=== PATIENT | female | born 1950 | race Caucasian/White ===

== ENCOUNTER 2023-02-23 11:45 | Inpatient (IN) | payer OTHER, MEDICAID ==
[~2023-02-23] VITALS: Ht 157.5 cm; Wt 57.2 kg
--- NOTE | 2023-02-23 11:45 | NUR ---
BIBA BLS TO ER BED 11
[2023-02-23 11:47] VITALS: BP 116/64
--- NOTE | 2023-02-23 12:30 | NUR ---
Pt taken to CT via ryennifer.
[2023-02-23 13:19] LABS: PROTHROMBIN TIME 10.9 secs (10.8-13.4)
[2023-02-23 13:55] LABS: BASOPHILS # (AUTO) 0.1 K/uL (0.00-0.22); BASOPHILS % (AUTO) 1.2 % (0.0-2.0); EOSINOPHILS # (AUTO) 0.1 K/uL (0-0.4); EOSINOPHILS % (AUTO) 2.5 % (0.0-4.0); HEMATOCRIT 40.3 % (36-48); HEMOGLOBIN 13.4 g/dL (12.0-16.0); LYMPHOCYTES # (AUTO) 1.8 K/uL (2.5-16.5); LYMPHOCYTES % (AUTO) 36.2 % (20.5-51.1); MEAN CORPUSCULAR HEMOGLOBIN 30 pg (27-31); MEAN CORPUSCULAR HGB CONC 33 g/dL (33-37); MEAN CORPUSCULAR VOLUME 88.8 fL (80-94); MONOCYTES # (AUTO) 0.5 K/uL (0.8-1.0); NEUTROPHILS # (AUTO) 2.4 K/uL (1.8-7.7); NEUTROPHILS % (AUTO) 50.1 % (42.2-75.2); PLATELET COUNT (AUTO) 133 K/uL (140-450); RED BLOOD CELL COUNT(AUTO) 4.53 MIL/uL (4.20-5.40); RED CELL DISTRIBUTION WIDTH 13.3 % (11.6-13.7); WHITE BLOOD COUNT (AUTO) 4.8 K/uL (4.8-10.8)
[2023-02-23 14:38] LABS: ALBUMIN 3.9 g/dL (3.4-5.0); ANION GAP 15.9 (8-16); ASPARTATE AMINOTRANSFERASE 29 U/L (15-37); CARBON DIOXIDE 26.2 mmol/L (21-32); CHLORIDE 106 mmol/L (98-107); CREATININE 0.8 mg/dL (0.6-1.3); GLUCOSE 68 mg/dL (74-106); POTASSIUM 3.1 mmol/L (3.5-5.1); SODIUM SERUM 145 mmol/L (136-145); TOTAL BILIRUBIN 0.3 mg/dL (0.0-1.0); UREA NITROGEN, BLOOD 20 mg/dL (7-18)
[2023-02-23] MEDS ORDERED: HALOPERIDOL IM 5 MG/ML VIAL IM ONE (14:40)
[2023-02-23] MEDS ORDERED: LIDOCAINE 1% 500 MG/ 50 ML VIAL INJ ONE (15:00)
[2023-02-23] MEDS ORDERED: LIDOCAINE MPF 1% 5 ML ONE (15:01)
[2023-02-23] MEDS ORDERED: LORazepam 2 MG/ML VIAL IM ONE (15:10)
[2023-02-23] MEDS ORDERED: ZOLPIDEM 10 MG TAB PO PRN (15:25)
[2023-02-23] MEDS ORDERED: DOCUSATE SODIUM 100 MG GELCAP PO PRN (15:25)
[2023-02-23] MEDS ORDERED: LORazepam 2 MG/ML VIAL IVP PRN (15:25)
[2023-02-23] MEDS ORDERED: ACETAMINOPHEN 325 MG TAB PO PRN (15:25)
[2023-02-23] MEDS ORDERED: POTASSIUM CHLORIDE 10 MEQ TABER PO PRN (15:25)
[2023-02-23] MEDS ORDERED: ONDANSETRON 4 MG/2 ML VIAL IVP PRN (15:25)
[2023-02-23] MEDS ORDERED: MAG SULF 2000 MG/WATER PREMIX 50 ML IV PRN (15:25)
[2023-02-23] MEDS ORDERED: MORPHINE SULFATE 2 MG/ML SYR IVP PRN (15:25)
[2023-02-23] MEDS ORDERED: NACL 0.9% 1,000 ML IV ONE (15:30)
[2023-02-23] MEDS ORDERED: CHOL5000 PO (18:16)
[2023-02-23] MEDS ORDERED: MEMA5TAB PO (18:16)
[2023-02-23] MEDS ORDERED: QUET25TA PO (18:16)
[2023-02-23] MEDS ORDERED: ASPI-1822 PO (18:16)
--- NOTE | 2023-02-23 19:50 | NUR ---
Report given to FRANKY Bagley. VSS. Pt transported with all belongings.
[2023-02-23 20:01] VITALS: BP 101/60
--- NOTE | 2023-02-23 20:01 | NUR ---
RECEIVED REPORT FROM ER NURSE ERIC FOR CONTINUITY OF CARE. PATIENT IS A&O X1. PATIENT IS ON 2L NC, BREATHING IS NORMAL WITH SYMMETRICAL RISE AND FALL OF CHEST. PATIENT'S IV IS A 22G L HAND, RUNNING NS 100. PATIENT IS SLEEPING, LYING SUPINE POSITION. BED IS IN LOWEST POSITION, WHEELS LOCKED CALL LIGHT IN PLACE. WILL CONTINUE TO OBSERVE PATIENT.
[2023-02-24] VITALS: BP 102/71
[2023-02-24] MEDS ORDERED: POTASSIUM CHLORIDE 20% 40 MEQ/15 ML UDC PO PRN (03:05)
[2023-02-24 04:00] VITALS: BP 128/77
--- NOTE | 2023-02-24 04:00 | NUR ---
PHOTO WAS TAKEN OF WOUND AND PLACED IN CHART.
--- NOTE | 2023-02-24 04:00 | NUR ---
PATIENT HAS BEEN VERY CONFUSED THROUGHOUT THE NIGHT. PATIENT CONSTANTLY SITS UP IN BED AND TRIES TO GET OUT OF BED (BED ALARM IS ON). HOWEVER, PATIENT IS COOPERATIVE WHEN YOU TELL HER THAT SHE NEEDS TO LAY BACK DOWN. PATIENT STATES OH OKAY, YOU WANT ME TO LAY DOWN. PATIENT PULLED OUT HER IV, AND A NEW ONE WAS PLACED BY FRANKY JARA. NEW IV SITE IS A 22G R WRIST; RUNNING NS 100. PATIENT HAS A WOUND ON HER RIGHT EYEBROW, LACERATION WAS SUTURED IN ER. WILL CONTINUE TO OBSERVE PATIENT.
[2023-02-24 05:55] LABS: EOSINOPHILS # (AUTO) 0.1 K/uL (0-0.4); EOSINOPHILS % (AUTO) 2.5 % (0.0-4.0); HEMATOCRIT 41.8 % (36-48); LYMPHOCYTES % (AUTO) 23.7 % (20.5-51.1); MEAN CORPUSCULAR HEMOGLOBIN 30 pg (27-31); MEAN CORPUSCULAR HGB CONC 33 g/dL (33-37); MEAN CORPUSCULAR VOLUME 88.6 fL (80-94); MONOCYTES # (AUTO) 0.4 K/uL (0.8-1.0); NEUTROPHILS # (AUTO) 2.7 K/uL (1.8-7.7); NEUTROPHILS % (AUTO) 62.8 % (42.2-75.2); PLATELET COUNT (AUTO) 112 K/uL (140-450); RED BLOOD CELL COUNT(AUTO) 4.72 MIL/uL (4.20-5.40); RED CELL DISTRIBUTION WIDTH 13.6 % (11.6-13.7); WHITE BLOOD COUNT (AUTO) 4.4 K/uL (4.8-10.8)
[2023-02-24 06:42] LABS: ANION GAP 14.7 (8-16); CHLORIDE 109 mmol/L (98-107); CREATININE 0.7 mg/dL (0.6-1.3); GLUCOSE 83 mg/dL (74-106); POTASSIUM 3.7 mmol/L (3.5-5.1); SODIUM SERUM 145 mmol/L (136-145); UREA NITROGEN, BLOOD 12 mg/dL (7-18)
--- NOTE | 2023-02-24 07:30 | NUR ---
RECEIVED REPORT FROM MODEL AND DYE PERSON NURSE FOR CONTINUITY OF CARE. PT IN BED SLEEPING. VISIBLE CHEST RISE/FALL. RESPIRATIONS EVEN AND UNLABORED ON 2L NC. NO DISTRESS NOTED. IV 22G ON R WRIST INFUSING NS @100. CALL LIGHT WITHIN REACH, ALL SAFETY PRECAUTIONS IN PLACE.
--- NOTE | 2023-02-24 07:45 | NUR ---
ENDORSED TO DAY SHIFT NURSE RICHIE FOR CONTINUITY OF CARE. PATIENT IS STABLE.
[2023-02-24 08:00] VITALS: BP 135/71
--- NOTE | 2023-02-24 08:45 | NUR ---
PER EMAR NS FLUIDS DC AT 0129. IV FLUIDS STOPPED AND DISCONNECTED PT. PT EATING BREAKFAST, TOLERATING WELL.
--- NOTE | 2023-02-24 09:09 | NUR ---
PATIENT HAS BEEN SCREENED AND CATEGORIZED LOW NUTRITION RISK. PATIENT WILL BE SEEN WITHIN 7 DAYS OF ADMISSION. 03/02/[address]VIEW[address] MATTHEW KIMBALL RD
--- NOTE | 2023-02-24 10:35 | NUR ---
WOUND CARE NOTE: PT. IS AWAKE BUT CONFUSE. SKIN ASSESSMENT DONE WITH SUTURES TO RIGHT EYEBROW DRY, NO S/S OF DEHISCENCE. PAYAL-WOUND SKIN FRESH BRUISES WITH PAIN 1/10. SLIGHTLY SWELLING. POC DISCUSSED WITH PT. NEED REINFORCEMENT. RECOMMENDATION: -KEEP SUTURES AREA DRY AND CLEAN -FOLLOW UP WITH PRIMARY PHYSICIAN 7-10 DAYS FOR SUTURE REMOVAL
--- NOTE | 2023-02-24 11:00 | NUR ---
PT REMOVING TELE LEADS. NURSE WALKED IN ROOM PATIENT TAKING OFF CLOTHES AND MUMBLING. WALKED PT BACK TO BED AND PLACED NEW TELE LEADS. REORIENTED PT TO SURROUNDINGS. PT LAYING DOWN IN BED.
[2023-02-24 12:00] VITALS: BP 128/72
--- NOTE | 2023-02-24 13:29 | NUR ---
PT REMOVING LEADS. LEADS REPLACED. TELE MONITORING ONGOING.
[2023-02-24 16:00] VITALS: BP 119/69
--- NOTE | 2023-02-24 16:20 | NUR ---
PT CONTINUALLY GETTING UP FROM BED, PT CONFUSED RIPPED OUT IV. NEW IV PLACED ON R A/C 20G.
--- NOTE | 2023-02-24 19:33 | NUR ---
ENDORSED PT TO FORMS BUILDER NURSE FOR CONTINUITY OF CARE. PT STABLE.
[2023-02-24 20:00] VITALS: BP 122/56
[2023-02-25] VITALS: BP 126/68
[2023-02-25 04:00] VITALS: BP 134/53
[2023-02-25 06:33] LABS: BASOPHILS # (AUTO) 0.1 K/uL (0.00-0.22); BASOPHILS % (AUTO) 0.8 % (0.0-2.0); EOSINOPHILS # (AUTO) 0.1 K/uL (0-0.4); HEMATOCRIT 39.8 % (36-48); HEMOGLOBIN 13.4 g/dL (12.0-16.0); LYMPHOCYTES # (AUTO) 1.3 K/uL (2.5-16.5); LYMPHOCYTES % (AUTO) 21.1 % (20.5-51.1); MEAN CORPUSCULAR HEMOGLOBIN 30 pg (27-31); MEAN CORPUSCULAR HGB CONC 34 g/dL (33-37); MEAN CORPUSCULAR VOLUME 88.2 fL (80-94); MONOCYTES # (AUTO) 0.8 K/uL (0.8-1.0); MONOCYTES % (AUTO) 12.7 % (1.7-9.3); NEUTROPHILS # (AUTO) 3.9 K/uL (1.8-7.7); NEUTROPHILS % (AUTO) 64.4 % (42.2-75.2); PLATELET COUNT (AUTO) 120 K/uL (140-450); RED BLOOD CELL COUNT(AUTO) 4.51 MIL/uL (4.20-5.40); RED CELL DISTRIBUTION WIDTH 13.6 % (11.6-13.7); WHITE BLOOD COUNT (AUTO) 6.1 K/uL (4.8-10.8)
[2023-02-25 06:44] LABS: ANION GAP 11.2 (8-16); CARBON DIOXIDE 27.7 mmol/L (21-32); CHLORIDE 108 mmol/L (98-107); CREATININE 0.8 mg/dL (0.6-1.3); GLUCOSE 93 mg/dL (74-106); POTASSIUM 3.9 mmol/L (3.5-5.1); SODIUM SERUM 143 mmol/L (136-145); UREA NITROGEN, BLOOD 14 mg/dL (7-18)
--- NOTE | 2023-02-25 07:20 | NUR ---
RECEIVED REPORT FOR CONTINUITY OF CARE. PT BROKE FREE OF LEFT WRIST RESTRAINT. PATIENT ORIENTED TO ROOM, REPOSITIONED BACK IN BED. PT IS AOX1 AND FORGETFUL. RESPIRATIONS EVEN AND UNLABORED ON RA. NO DISTRESS NOTED. ALL SAFETY PRECAUTIONS IN PLACE. CALL LIGHT WITHIN REACH.
[2023-02-25 08:00] VITALS: BP 132/72
--- NOTE | 2023-02-25 10:25 | NUR ---
MAKING ROUNDS. PATIENT TALKING TO HERSELF. BROKE FREE OF RESTRAINTS. PATIENT REORIENTED AND ASSISTED BACK IN BED.
[2023-02-25 12:00] VITALS: BP 120/73
--- NOTE | 2023-02-25 13:16 | NUR ---
BED ALARM GOING OFF. PT REORIENTED TO SURROUNDING.
[2023-02-25 16:00] VITALS: BP 123/68
--- NOTE | 2023-02-25 17:00 | NUR ---
MAKING ROUNDS PATIENT IN BED TALKING TO HERSELF. NO DISTRESS NOTED. CARE ONGOING.
--- NOTE | 2023-02-25 19:23 | NUR ---
ENDORSED PT TO FORCER MAKER NURSE FOR CONTINUITY OF CARE. PT IS STABLE.
[2023-02-25 20:00] VITALS: BP_SYST 132; BP_SYST 133; BP_DIAS 72
--- NOTE | 2023-02-25 20:00 | NUR ---
NURSE REPORT REPORT OBTAINED FROM [facility] NURSE QUIROZ AND THIS NURSE ASSUMED CARE OF PATIENT. ALL QUESTIONS ANSWERED. JONO DORAN RN
[2023-02-26] VITALS: BP 133/64
--- NOTE | 2023-02-26 00:02 | NUR ---
NURSE NOTES VSS. AFEB. TELE WITH SR OCC-FREQ PCS- HR 72 BPM. NO C/O PAIN OR DISCOMFORT
[2023-02-26 04:00] VITALS: BP 128/53
[2023-02-26 05:47] LABS: BASOPHILS # (AUTO) 0.1 K/uL (0.00-0.22); BASOPHILS % (AUTO) 0.8 % (0.0-2.0); EOSINOPHILS # (AUTO) 0.1 K/uL (0-0.4); EOSINOPHILS % (AUTO) 1.5 % (0.0-4.0); HEMATOCRIT 43.2 % (36-48); HEMOGLOBIN 14.3 g/dL (12.0-16.0); LYMPHOCYTES % (AUTO) 27.6 % (20.5-51.1); MEAN CORPUSCULAR HEMOGLOBIN 29 pg (27-31); MEAN CORPUSCULAR HGB CONC 33 g/dL (33-37); MEAN CORPUSCULAR VOLUME 88.8 fL (80-94); MONOCYTES # (AUTO) 1.1 K/uL (0.8-1.0); NEUTROPHILS % (AUTO) 54.7 % (42.2-75.2); PLATELET COUNT (AUTO) 127 K/uL (140-450); RED BLOOD CELL COUNT(AUTO) 4.87 MIL/uL (4.20-5.40); RED CELL DISTRIBUTION WIDTH 13.8 % (11.6-13.7); WHITE BLOOD COUNT (AUTO) 7.4 K/uL (4.8-10.8)
[2023-02-26 06:07] LABS: CARBON DIOXIDE 26.8 mmol/L (21-32); CHLORIDE 107 mmol/L (98-107); CREATININE 0.8 mg/dL (0.6-1.3); GLUCOSE 96 mg/dL (74-106); POTASSIUM 3.8 mmol/L (3.5-5.1); SODIUM SERUM 142 mmol/L (136-145); UREA NITROGEN, BLOOD 14 mg/dL (7-18)
[2023-02-26 06:38] LABS: MONOCYTES % (AUTO) 15.4 % (1.7-9.3)
--- NOTE | 2023-02-26 07:07 | NUR ---
NURSE REPORT REPORT GIVEN TO RICHIE TO ASSUME CARE OF PATIENT. ALL QUESTIONS ANSWERED. JONO DORAN RN
--- NOTE | 2023-02-26 07:08 | NUR ---
RECEIVED PT FROM PAINT TRIMMER PIPE BOWLS FOR CONTINUITY OF CARE. PATIENT IS AWAKE SITTING ON EDGE OF BED WITH FEET HANGING OFF FOOT OF BED, SOFT WRIST RESTRAINTS ON. REORIENTED PATIENT TO ENVIRONMENT. PATIENT IS ALERT AND ORIENTED X1. RESPIRATIONS EVEN AND UNLABORED ON RA. SKIN IS COOL TO TOUCH. PLACED BLANKETS ON PATIENT. ALL SAFETY PRECAUTIONS IN PLACE.
[2023-02-26 08:00] VITALS: BP 137/70
[2023-02-26] MEDS: QUEtiapine FUMARATE 25 MG TAB PO SCH (08:52)
[2023-02-26] MEDS: MEMANTINE 10 MG TAB PO SCH (08:55)
--- NOTE | 2023-02-26 09:00 | NUR ---
ADMINISTERED ALL SCHEDULED MEDS. PT TOLERATING WELL. EATING BREAKFAST.
[2023-02-26 12:00] VITALS: BP 115/58
[2023-02-26 16:00] VITALS: BP 123/56
--- NOTE | 2023-02-26 19:23 | NUR ---
ENDORSED PT TO TOOL REPAIRER BENCH NURSE FOR CONTINUITY OF CARE. ALL NEEDS MET THROUGHOUT SHIFT. PT IS STABLE
--- NOTE | 2023-02-26 19:24 | NUR ---
RECEIVED ENDORSEMENT FROM DAY SHIFT NURSE FOR CONTINUITY OF CARE. PT IS ON STABLE CONDITION. PT IS AWAKE, ALERT AND CONFUSE. PT IS ON BED AND COMPLY WITH INSTRUCTION. IV SITE ON RIGHT AC INTACT AND PATENT. RIGHT EYE IS WITH DISCOLORATION AND SLIGHTLY SWOLLEN. NO COMPLAINT OF PAIN OR DISCOMFORT.
[2023-02-26 20:00] VITALS: BP 116/63
--- NOTE | 2023-02-26 20:30 | NUR ---
PT IS ASLEEP, NO FACIAL GRIMACING.
--- NOTE | 2023-02-26 22:00 | NUR ---
PT IS SLEEPING WELL, NO SOB OR DISTRESS.
--- NOTE | 2023-02-27 00:20 | NUR ---
PT IS ASLEEP, NO SOB OR DISTRESS. LACERATION ON RIGHT FOREHEAD IS DRY.
--- NOTE | 2023-02-27 03:10 | NUR ---
PT IS ASLEEP. NO FACIAL GRIMACING.
[2023-02-27 04:00] VITALS: BP 135/63
[2023-02-27 06:11] LABS: ANION GAP 9.6 (8-16); BASOPHILS # (AUTO) 0.1 K/uL (0.00-0.22); CARBON DIOXIDE 29.1 mmol/L (21-32); CHLORIDE 108 mmol/L (98-107); CREATININE 0.8 mg/dL (0.6-1.3); EOSINOPHILS # (AUTO) 0.2 K/uL (0-0.4); EOSINOPHILS % (AUTO) 3.1 % (0.0-4.0); GLUCOSE 93 mg/dL (74-106); LYMPHOCYTES # (AUTO) 1.7 K/uL (2.5-16.5); LYMPHOCYTES % (AUTO) 30.1 % (20.5-51.1); MEAN CORPUSCULAR HEMOGLOBIN 30 pg (27-31); MEAN CORPUSCULAR HGB CONC 33 g/dL (33-37); MEAN CORPUSCULAR VOLUME 88.9 fL (80-94); MONOCYTES # (AUTO) 0.7 K/uL (0.8-1.0); MONOCYTES % (AUTO) 12.3 % (1.7-9.3); NEUTROPHILS # (AUTO) 3.1 K/uL (1.8-7.7); NEUTROPHILS % (AUTO) 53.5 % (42.2-75.2); PLATELET COUNT (AUTO) 125 K/uL (140-450); POTASSIUM 3.7 mmol/L (3.5-5.1); RED BLOOD CELL COUNT(AUTO) 4.73 MIL/uL (4.20-5.40); RED CELL DISTRIBUTION WIDTH 13.8 % (11.6-13.7); SODIUM SERUM 143 mmol/L (136-145); UREA NITROGEN, BLOOD 14 mg/dL (7-18); WHITE BLOOD COUNT (AUTO) 5.8 K/uL (4.8-10.8)
--- NOTE | 2023-02-27 06:54 | NUR ---
PT IS SLEEPING, NO SOB OR DISTRESS. ALL SAFETY MEASURES ARE IN PLACE, WILL ENDORSED TO DAY SHIFT NURSE FOR CONTINUITY OF CARE.
--- NOTE | 2023-02-27 07:08 | NUR ---
receive the patinet from the mine shifter rn in rm 121B aox1 with episode of confusion with admitting diagnosis of mechanical fall . will continue to monitor
--- NOTE | 2023-02-27 07:20 | NUR ---
PT IS ON STABLE CONDITION, NO SOB OR DISTRESS. NO FACIAL GRIMACING. NECESSARY SAFETY MEASURES ARE IN PLACE. ENDORSED TO DAY SHIFT NURSE YOLANDA FOR CONTINUITY OF CARE.
[2023-02-27 08:00] VITALS: BP 114/65
[2023-02-27] MEDS: QUEtiapine FUMARATE 25 MG TAB PO SCH (09:09)
[2023-02-27] MEDS: MEMANTINE 10 MG TAB PO SCH (09:09)
--- NOTE | 2023-02-27 11:30 | NUR ---
discharge the patient to [facility] . patient in stable condition . no complain of pain at this time . no sign and symptoms of respiratory distress sicontnue intravenous line , identification band . brought by EMT by derrell to [facility]
--- NOTE | 2023-02-27 11:30 | NUR ---
RECEIVED ORDER FOR PATIENT TO DISCHARGE BACK TO [facility]ED [facility] LOCATED AT [address] [place] [address]. CALL FOR REPORT# . TRANSPORTATION AUTH#[id number] GIVEN FROM ZI MOREIRA. [facility] TRANSPORTATION SET UP WITH [facility] WITH A 1500 [employer] TECHNICIAN TIME. NURSE YOLANDA AND SON LEON AWARE OF THE ABOVE INFORMATION.
--- NOTE | 2023-02-27 12:29 | NUR ---
PT. CHANGE OF VANESSA SCALE WITH LOW VANESSA SCALE AT MODERATE TO HIGH RISK, CONTINUE TO FOLLOW PRESSURE INJURY PREVENTION INTERVENTIONS. -POSITIONING: TURN AND REPOSITION PATIENT Q 2H OR SOONER USE PILLOWS TO KEEP BONY PROMINENCES FROM DIRECT CONTACT WITH SURFACES USE REPOSITIONING WEDGES TO PROVIDE 30-DEGREE ANGLE FOR SIDE LYING POSITIONS OFFLOADING OR FOAM DRESSING TO ALL TUBING TO PREVENT MEDICAL DEVICES RELATED PRESSURE INJURY -RE-EVALUATING AND MANAGING INCONTINENCE MONITOR SKIN CONDITION DURING POSITION CHANGE DO NOT MASSAGE REDNESS, BONY PROMINENCES FREQUENT PAYAL-CARE AND PROVIDE BARRIER CREAMS PRN IF SOILING MOISTURE CONTROL BY OFFER BED GUPTA/URINAL /ABSORBENT PAD TO WICK AND HOLD MOISTURE KEEP SKIN DRY AND PROTECT FROM FRICTION -MANAGE FRICTION/SHEAR/MOBILITY KEEP HOB AT THE LOWEST LEVEL OF ELEVATION NO MORE THAN 30 DEGREE UNLESS OTHERWISE CONTRAINDICATED USE LIFT SHEET OR TRANSFER DEVICE TO MOVE PATIENT AND PREVENT LATERAL SHEER. PROTECT HEELS, ELBOWS BONY PROMINENCES WITH SKIN BERRIES OR FOAM DRESSING IF EXPOSED TO FRICTION OFFLOAD BILATERAL HEELS BY PLACING PILLOWS UNDER CALVES AT ALL TIMES, UNLESS OTHERWISE CONTRAINDICATED -PRESSURE REDISTRIBUTION SURFACE THERAPY SARAH ISOFLEX MATTRESS -NUTRITION: PLEASE FOLLOW RD RECOMMENDATIONS AND OFFER NUTRITION SUPPLEMENTS IF ORDERED. PLEASE CONTACT WOUND CARE NURSE FOR ANY QUESTION AND CHANGE OF WOUND CONDITION.
[2023-02-27] MEDS ORDERED: DOCU-299 PO (13:52)
== END 2023-02-27 14:05 | DRG 605 ==
LOC: MED 11:45 → MTU 15:25
PROVIDERS: ADMIT Family Medicine; ATTEND Family Medicine
PROC: 0HQ1XZZ Repair Face Skin, External Approach (ICD-10-PCS; principal; 2023-02-24)
DX: S01.81XA Laceration without foreign body of other part of head, initial encounter (principal); S09.90XA Unspecified injury of head, initial encounter; E87.6 Hypokalemia; R00.1 Bradycardia, unspecified; I10 Essential (primary) hypertension; F03.90 Unspecified dementia, unspecified severity, without behavioral disturbance, psychotic disturbance, mood disturbance, and anxiety; D72.819 Decreased white blood cell count, unspecified; D69.6 Thrombocytopenia, unspecified; I67.2 Cerebral atherosclerosis; E16.2 Hypoglycemia, unspecified; Z20.822 Contact with and (suspected) exposure to COVID-19; W18.39XA Other fall on same level, initial encounter; Y93.89 Activity, other specified; Y92.89 Other specified places as the place of occurrence of the external cause; Y99.8 Other external cause status
CPT/HCPCS: 36415; 70450; 72125; 80048; 80053; 83735; 84484; 85025; 85610; 85730; 87081; 90471; 90715; 93005; 96372; 97116; 97163-GP; 97530; 99285; J1630; J2001; J2060

== ENCOUNTER 2023-04-06 10:40 | Inpatient (IN) | payer OTHER, MEDICAID ==
[~2023-04-06] VITALS: Ht 160 cm; Wt 45.4 kg
[~2023-04-06 10:40] MED LIST: ASPI-1822 PO; CHOL5000 PO; DOCU-299 PO; MEMA5TAB PO; QUET25TA PO
--- NOTE | 2023-04-06 10:51 | NUR ---
PATIENT BIBA TO BED 7
[2023-04-06 10:52] VITALS: BP 103/58
--- NOTE | 2023-04-06 11:21 | NUR ---
PT WAS EXAMINED BY DR. CASTANON THEN TAKEN TO CT.
--- NOTE | 2023-04-06 12:06 | NUR ---
LAB AT BEDSIDE.
[2023-04-06 12:28] LABS: APPEARANCE,URINE CLEAR (CLEAR); BILIRUBIN,URINE NEGATIVE (NEGATIVE); BLOOD, URINE NEGATIVE (NEGATIVE); COLOR,URINE YELLOW (YELLOW); LEUKOCYTE ESTERASE ,URINE 1+ (NEGATIVE); NITRITE, URINE NEGATIVE (NEGATIVE); PH,URINE 5.5 (5.0-9.0); UGLUCOSE NEGATIVE (NEGATIVE)
[2023-04-06 12:31] LABS: BASOPHILS # (AUTO) 0.1 K/uL (0.00-0.22); BASOPHILS % (AUTO) 1.1 % (0.0-2.0); EOSINOPHILS # (AUTO) 0.1 K/uL (0-0.4); EOSINOPHILS % (AUTO) 2.3 % (0.0-4.0); HEMATOCRIT 34.8 % (36-48); HEMOGLOBIN 11.8 g/dL (12.0-16.0); LYMPHOCYTES # (AUTO) 1.9 K/uL (2.5-16.5); LYMPHOCYTES % (AUTO) 36.1 % (20.5-51.1); MEAN CORPUSCULAR HEMOGLOBIN 30 pg (27-31); MEAN CORPUSCULAR HGB CONC 34 g/dL (33-37); MONOCYTES # (AUTO) 0.3 K/uL (0.8-1.0); MONOCYTES % (AUTO) 6.6 % (1.7-9.3); NEUTROPHILS # (AUTO) 2.8 K/uL (1.8-7.7); NEUTROPHILS % (AUTO) 53.9 % (42.2-75.2); PLATELET COUNT (AUTO) 142 K/uL (140-450); RED BLOOD CELL COUNT(AUTO) 3.95 MIL/uL (4.20-5.40); RED CELL DISTRIBUTION WIDTH 14.5 % (11.6-13.7); WHITE BLOOD COUNT (AUTO) 5.3 K/uL (4.8-10.8)
[2023-04-06] MEDS ORDERED: OLANZapine 10 MG VIAL IM ONE (12:40)
--- NOTE | 2023-04-06 12:46 | NUR ---
PT HAS ACUTE ONSET OF AGITATION/ CONFUSION, AWARE
--- NOTE | 2023-04-06 12:46 | NUR ---
GETTING MORE AGITATING. DR. CASTANON NOTIFIED. ZYPREXA IM ORDERED AND GIVEN BY JOI WILKINS.
[2023-04-06 12:57] LABS: ASPARTATE AMINOTRANSFERASE 25 U/L (15-37); TOTAL BILIRUBIN 0.3 mg/dL (0.0-1.0)
[2023-04-06 13:11] LABS: ALBUMIN 3.3 g/dL (3.4-5.0); CARBON DIOXIDE 26.6 mmol/L (21-32); CHLORIDE 110 mmol/L (98-107); CREATININE 0.8 mg/dL (0.6-1.3); GLUCOSE 83 mg/dL (74-106); POTASSIUM 3.6 mmol/L (3.5-5.1); SODIUM SERUM 145 mmol/L (136-145); UREA NITROGEN, BLOOD 18 mg/dL (7-18)
[2023-04-06 13:22] LABS: ACETAMINOPHEN < 0.5 ug/ml (10-30); SALICYLATE < 2.8 mg/dL (2.8-20.0)
[2023-04-06 14:09] LABS: RBC,URINE 0-5 /HPF (0-5)
[2023-04-06 14:10] LABS: CALCIUM OXALATE CRYSTALS,UR None Seen /HPF (None Seen); COARSE GRANULAR CASTS,URINE None Seen /LPF (None Seen); HYALINE CASTS, URINE None Seen /LPF (None Seen); OTHER CASTS, URINE None Seen /LPF (None Seen); OTHER CRYSTALS,URINE None Seen /HPF (None Seen); RED BLOOD CELL CASTS,URINE None Seen /LPF (None Seen); TRICHOMONAS,URINE None Seen /HPF (None Seen); TRIPLE PHOSPHATE CRYSTAL,UR None Seen /HPF (None Seen); URINE AMORPHOUS URATE None Seen /HPF (None Seen); WAXY CASTS,URINE None Seen /LPF (None Seen); YEAST,URINE None Seen /HPF (None Seen)
[2023-04-06] MEDS ORDERED: cefTRIAXone 1,000 MG VIAL ONE (14:31)
[2023-04-06] MEDS ORDERED: ACETAMINOPHEN 325 MG TAB PO PRN (15:40)
[2023-04-06] MEDS ORDERED: MORPHINE SULFATE 2 MG/ML SYR IVP PRN (15:40)
[2023-04-06] MEDS ORDERED: DOCUSATE SODIUM 100 MG GELCAP PO PRN (15:40)
[2023-04-06] MEDS ORDERED: MAG SULF 2000 MG/WATER PREMIX 50 ML IV PRN (15:40)
[2023-04-06] MEDS ORDERED: POTASSIUM CHLORIDE 10 MEQ TABER PO PRN (15:40)
[2023-04-06] MEDS ORDERED: ONDANSETRON 4 MG/2 ML VIAL IVP PRN (15:40)
[2023-04-06] MEDS: NACL 0.9% 1,000 ML IV SCH (15:52)
[2023-04-06 18:28] VITALS: BP 138/66
--- NOTE | 2023-04-06 18:28 | NUR ---
PT GOT BED 108B. PT WAS SENT BY [facility]. REPORT WAS ENDORSED BEDSIDE.
--- NOTE | 2023-04-06 18:48 | NUR ---
Admission of a 72 year old female with a primary diagnosis of altered level of consciousness under the care of Doctor Welch.
--- NOTE | 2023-04-06 19:35 | NUR ---
RECEIVED BEDSIDE REPORT FROM MORNING NURSE. PATIENT AWAKE CONFUSED, REORIENTED. NO ACUTE DISTRESS ON ROOM AIR. IV SITE TO LEFT UPPER ARM INTACT AND PATENT. ALL SAFETY PRECAUTIONS ARE IN PLACE. CALL LIGHT WITHIN REACH. NASAL SWAB DONE FOR MRSA SCREENING. WILL CONTINUE TO MONITOR.
[2023-04-06 20:00] VITALS: BP 115/58
[2023-04-06] MEDS: ZOLPIDEM 10 MG TAB PO PRN (21:15)
--- NOTE | 2023-04-06 21:15 | NUR ---
SCHEDULED MEDS GIVEN.
[2023-04-07] MEDS: LORazepam 2 MG/ML VIAL IVP PRN ×3 (01:19→23:09)
[2023-04-07 04:00] VITALS: BP 123/54
[2023-04-07] MEDS: NACL 0.9% 1,000 ML IV SCH ×2 (05:58→20:16)
--- NOTE | 2023-04-07 07:12 | NUR ---
NEEDS ATTENDED AND MET THROUGHOUT THE SHIFT. GAVE BEDSIDE REPORT TO AM NURSE FOR CONTINUITY OF CARE.
[2023-04-07 08:00] VITALS: BP 123/54
[2023-04-07 08:13] LABS: BASOPHILS # (AUTO) 0.1 K/uL (0.00-0.22); EOSINOPHILS # (AUTO) 0.2 K/uL (0-0.4); EOSINOPHILS % (AUTO) 3.1 % (0.0-4.0); HEMATOCRIT 40.3 % (36-48); HEMOGLOBIN 13.4 g/dL (12.0-16.0); LYMPHOCYTES # (AUTO) 1.9 K/uL (2.5-16.5); LYMPHOCYTES % (AUTO) 33.5 % (20.5-51.1); MEAN CORPUSCULAR HEMOGLOBIN 30 pg (27-31); MEAN CORPUSCULAR HGB CONC 33 g/dL (33-37); MEAN CORPUSCULAR VOLUME 89.1 fL (80-94); MONOCYTES # (AUTO) 0.4 K/uL (0.8-1.0); MONOCYTES % (AUTO) 7.6 % (1.7-9.3); NEUTROPHILS # (AUTO) 3.1 K/uL (1.8-7.7); NEUTROPHILS % (AUTO) 54.8 % (42.2-75.2); PLATELET COUNT (AUTO) 139 K/uL (140-450); RED BLOOD CELL COUNT(AUTO) 4.52 MIL/uL (4.20-5.40); RED CELL DISTRIBUTION WIDTH 14.4 % (11.6-13.7); WHITE BLOOD COUNT (AUTO) 5.7 K/uL (4.8-10.8)
[2023-04-07] MEDS ORDERED: DOCUSATE SODIUM 100 MG GELCAP PO PRN (08:40)
--- NOTE | 2023-04-07 09:06 | NUR ---
PATIENT HAS BEEN SCREENED AND CATEGORIZED LOW NUTRITION RISK. PATIENT WILL BE SEEN WITHIN 7 DAYS OF ADMISSION. 04/13/[address] REVIEWED BY MAT[address]W KIMBALL RD
[2023-04-07] MEDS: ASPIRIN 81 MG TAB.CHEW PO SCH (09:18)
[2023-04-07] MEDS: MEMANTINE 10 MG TAB PO SCH (09:18)
[2023-04-07 09:33] LABS: ANION GAP 11.6 (8-16); CARBON DIOXIDE 28.1 mmol/L (21-32); CHLORIDE 111 mmol/L (98-107); CREATININE 0.7 mg/dL (0.6-1.3); GLUCOSE 71 mg/dL (74-106); POTASSIUM 4.7 mmol/L (3.5-5.1); SODIUM SERUM 146 mmol/L (136-145); UREA NITROGEN, BLOOD 16 mg/dL (7-18)
--- NOTE | 2023-04-07 15:46 | NUR ---
DC PLANNING ASSESSMENT COMPLETE PLEASE REFER TO ASSESSMENT FOR ADDITIONAL DETAILS MYLES DARCIE DC PLAN IS FOR PT TO RETURN TO MR ONCE MEDICALLY CLEARED BY PHYSICIAN. Addendum: 04/07/23 at 1548 by Marisol ALVA Amended: Links added.
[2023-04-07 20:00] VITALS: BP 110/58
--- NOTE | 2023-04-07 21:32 | NUR ---
ADMINISTERED SCHEDULED MEDICATION PER MD ORDER.
--- NOTE | 2023-04-07 23:10 | NUR ---
IV INFILTRATED. STARTED A NEW IV TO THE RIGHT HAND WITH GOOD BACK FLOW OF BLOOD. TOLERATED WELL.
[2023-04-08 04:00] VITALS: BP 142/71
[2023-04-08 07:16] LABS: BASOPHILS % (AUTO) 0.7 % (0.0-2.0); EOSINOPHILS # (AUTO) 0.1 K/uL (0-0.4); EOSINOPHILS % (AUTO) 2.7 % (0.0-4.0); HEMATOCRIT 38.2 % (36-48); HEMOGLOBIN 12.8 g/dL (12.0-16.0); LYMPHOCYTES # (AUTO) 1.5 K/uL (2.5-16.5); LYMPHOCYTES % (AUTO) 28.5 % (20.5-51.1); MEAN CORPUSCULAR HEMOGLOBIN 30 pg (27-31); MEAN CORPUSCULAR HGB CONC 34 g/dL (33-37); MEAN CORPUSCULAR VOLUME 88.2 fL (80-94); MONOCYTES # (AUTO) 0.3 K/uL (0.8-1.0); MONOCYTES % (AUTO) 6.1 % (1.7-9.3); NEUTROPHILS # (AUTO) 3.2 K/uL (1.8-7.7); PLATELET COUNT (AUTO) 147 K/uL (140-450); RED BLOOD CELL COUNT(AUTO) 4.33 MIL/uL (4.20-5.40); RED CELL DISTRIBUTION WIDTH 14.5 % (11.6-13.7); WHITE BLOOD COUNT (AUTO) 5.1 K/uL (4.8-10.8)
[2023-04-08 07:37] LABS: ANION GAP 12.7 (8-16); CARBON DIOXIDE 24.7 mmol/L (21-32); CHLORIDE 109 mmol/L (98-107); CREATININE 0.7 mg/dL (0.6-1.3); GLUCOSE 77 mg/dL (74-106); POTASSIUM 3.4 mmol/L (3.5-5.1); SODIUM SERUM 143 mmol/L (136-145); UREA NITROGEN, BLOOD 10 mg/dL (7-18)
[2023-04-08 08:00] VITALS: BP 117/54
[2023-04-08] MEDS: ASPIRIN 81 MG TAB.CHEW PO SCH (09:16)
[2023-04-08] MEDS: MEMANTINE 10 MG TAB PO SCH (09:16)
[2023-04-08] MEDS: LORazepam 2 MG/ML VIAL IVP PRN (10:00)
[2023-04-08] MEDS: NACL 0.9% 1,000 ML IV SCH (10:34)
[2023-04-08 16:00] VITALS: BP 135/75
[2023-04-08 20:00] VITALS: BP 144/77
[2023-04-08] MEDS: ZOLPIDEM 10 MG TAB PO PRN (23:26)
[2023-04-09] MEDS: NACL 0.9% 1,000 ML IV SCH ×2 (00:52→15:10)
[2023-04-09 04:00] VITALS: BP 104/56
[2023-04-09 07:04] LABS: BASOPHILS % (AUTO) 0.8 % (0.0-2.0); EOSINOPHILS # (AUTO) 0.1 K/uL (0-0.4); EOSINOPHILS % (AUTO) 1.5 % (0.0-4.0); HEMATOCRIT 40.7 % (36-48); HEMOGLOBIN 13.6 g/dL (12.0-16.0); LYMPHOCYTES # (AUTO) 1.8 K/uL (2.5-16.5); LYMPHOCYTES % (AUTO) 28.3 % (20.5-51.1); MEAN CORPUSCULAR HEMOGLOBIN 30 pg (27-31); MEAN CORPUSCULAR HGB CONC 33 g/dL (33-37); MONOCYTES # (AUTO) 0.4 K/uL (0.8-1.0); MONOCYTES % (AUTO) 6.6 % (1.7-9.3); NEUTROPHILS # (AUTO) 3.9 K/uL (1.8-7.7); NEUTROPHILS % (AUTO) 62.8 % (42.2-75.2); PLATELET COUNT (AUTO) 159 K/uL (140-450); RED BLOOD CELL COUNT(AUTO) 4.63 MIL/uL (4.20-5.40); RED CELL DISTRIBUTION WIDTH 14.7 % (11.6-13.7); WHITE BLOOD COUNT (AUTO) 6.2 K/uL (4.8-10.8)
--- NOTE | 2023-04-09 07:13 | NUR ---
RECEIVED PATIENT FROM PM NURSE FOR CONTUATION OF CARE. PATIENT SEEN ON BED TRYNG TO GET UP. PATIENT IS CONFUSED AND ON RESTRAINTS. NO IV SITE ESTABLISHED DUE TO PATIENT INTERFERENCE. RESTRAINT CHARTING CHECKED, PLAN OF CARE REVIEWED, PATIENT CARE CONTINUED.
[2023-04-09 07:15] LABS: ANION GAP 12.9 (8-16); CARBON DIOXIDE 26.2 mmol/L (21-32); CHLORIDE 106 mmol/L (98-107); CREATININE 0.8 mg/dL (0.6-1.3); GLUCOSE 77 mg/dL (74-106); POTASSIUM 3.1 mmol/L (3.5-5.1); SODIUM SERUM 142 mmol/L (136-145); UREA NITROGEN, BLOOD 7 mg/dL (7-18)
[2023-04-09 08:00] VITALS: BP 127/67
[2023-04-09] MEDS: ASPIRIN 81 MG TAB.CHEW PO SCH (08:59)
[2023-04-09] MEDS: MEMANTINE 10 MG TAB PO SCH (08:59)
[2023-04-09 16:00] VITALS: BP 111/71
[2023-04-09] MEDS: LORazepam 2 MG/ML VIAL IVP PRN (18:03)
--- NOTE | 2023-04-09 19:20 | NUR ---
ENDORSED PATIENT TO NIGHT NURSE FOR CONTINUATION OF CARE.
--- NOTE | 2023-04-09 19:21 | NUR ---
RECEIVED ENDORSEMENT FROM JERILYN RN. PATIENT WAS STABLE IN BED ASLEEP. NURSING NOTED CHEST RISING AND FALLING WITHOUT INCIDENT. PATIENT IS ON BILATERAL SOFT WRIST RESTRAINT DUE TO REMOVING ANY AND ALL MEDICAL DEVICES AND ATTEMPTING TO GET OUT OF BED A FALL RISK. ALL NEEDS WERE MET AT THIS TIME. KEPT CLEAN AND DRY AT THIS TIME. SIDE RAILS UP X 3 FOR COMFORT AND SAFETY. CALL LIGHT WITHIN REACH BUT NURSING WILL FREQUENT THIS ROOM FOR ANTICIPATED ASSISTANCE. [email or web address]
[2023-04-09 20:00] VITALS: BP 106/61
--- NOTE | 2023-04-09 22:34 | NUR ---
PATIENT WAS WET FROM URINE AND WAS GIVEN ABED BATH THEN CHANGED INTO CLEAN AND DRY CLOTHING DIAPER. NO NOTED OPEN SORES. NOTED MULTIPLE BRUISING TO BILATERAL KNEES YELLOWISH GREEN. PATIENT IS ON HEPARIN TREATMENT. BILATERAL SOFT WRIST RESTRAINTS REMAIN WITH Q15 RELEASE FOR BREAKS, CIRCULATION CHECKS, AND SAFETY. [email or web address]
--- NOTE | 2023-04-10 00:27 | NUR ---
PATIENT NOTED AT THE END OF HER BED ATTEMPTING TO GET OUT. BILATERAL SOFT RESTRAINT ARE INTACT AND BED ALARM IS ON AND WORKING. PATIENT WAS CLEANED AND REPOSITIONED TO REMAIN SAFE AND CLEAN. CALL LIGHT IN REACH. SIDE RAILS UP X 3. ALL NEEDS MET AT THIS TIME. NURSING WILL FREQUENT THE ROOM FOR SAFETY AND ASSISTANCE. [email or web address]
[2023-04-10] MEDS: ZOLPIDEM 10 MG TAB PO PRN (01:01)
--- NOTE | 2023-04-10 01:57 | NUR ---
PATIENT NOTED IN BED ATTEMPTING TO GET OUT AGAIN. AMBIEN GIVEN IS NOT EFFECTIVE AT THIS TIME. COVERING RN WAS NOTIFIED TO PLEASE GIVE ATIVAN. BP NOTED 133/70 HEART RATE 72. BILATERAL SOFT WRIST RESTRAINTS ARE STILL INTACT. FOLLOWING PROTOCOL FOR 15 MIN BREAKS, CIRCULATION CHECK, AND REPOSITIONING. [email or web address]
[2023-04-10 04:00] VITALS: BP 111/62
--- NOTE | 2023-04-10 04:27 | NUR ---
PATIENT IN BED ASLEEP AFTER COVERING RN GAVE ATIVAN. NO NOTED SIDE EFFECTS. NO NOTED S/S OF PAIN/DISCOMFORT. NO NOTED S/S OF RESPIRATORY DISTRESS. CALL LIGHT WITHIN REACH. NURSING WILL FREQUENT THIS ROOM FOR ANTICIPATED NEEDS. [email or web address]
[2023-04-10] MEDS: NACL 0.9% 1,000 ML IV SCH (05:28)
--- NOTE | 2023-04-10 05:30 | NUR ---
PATIENT IS TOO CONFUSED TO HAVE IV FLUIDS. I WILL PAGE THE BUSINESS OBJECTS ARCHITECT TO PLACE PATIENT ON SALINE LOCK BECAUSE SHE CAN DRINK ON COMMAND WITHOUT CHOKING. [email or web address]
[2023-04-10 06:56] LABS: BASOPHILS % (AUTO) 0.7 % (0.0-2.0); EOSINOPHILS # (AUTO) 0.1 K/uL (0-0.4); EOSINOPHILS % (AUTO) 2.1 % (0.0-4.0); HEMATOCRIT 38.7 % (36-48); LYMPHOCYTES % (AUTO) 29.4 % (20.5-51.1); MEAN CORPUSCULAR HEMOGLOBIN 30 pg (27-31); MEAN CORPUSCULAR HGB CONC 34 g/dL (33-37); MEAN CORPUSCULAR VOLUME 88.5 fL (80-94); MONOCYTES # (AUTO) 0.5 K/uL (0.8-1.0); MONOCYTES % (AUTO) 7.8 % (1.7-9.3); NEUTROPHILS # (AUTO) 4.1 K/uL (1.8-7.7); PLATELET COUNT (AUTO) 159 K/uL (140-450); RED BLOOD CELL COUNT(AUTO) 4.37 MIL/uL (4.20-5.40); RED CELL DISTRIBUTION WIDTH 14.7 % (11.6-13.7); WHITE BLOOD COUNT (AUTO) 6.8 K/uL (4.8-10.8)
[2023-04-10 07:02] LABS: ANION GAP 11.8 (8-16); CARBON DIOXIDE 27.4 mmol/L (21-32); CHLORIDE 109 mmol/L (98-107); CREATININE 0.8 mg/dL (0.6-1.3); GLUCOSE 82 mg/dL (74-106); POTASSIUM 4.2 mmol/L (3.5-5.1); SODIUM SERUM 144 mmol/L (136-145); UREA NITROGEN, BLOOD 15 mg/dL (7-18)
--- NOTE | 2023-04-10 07:03 | NUR ---
ENDORSED TO JERILYN RN, PATIENT WAS STABLE DURING SHIFT REPORT. [email or web address]
--- NOTE | 2023-04-10 07:15 | NUR ---
RECEIVED PATIENT FROM PM NURSE FOR CONTINUATION OF CARE. PT SEEN ON BED ASLEEP. NORMAL RISE AND FALL OF CHEST. PATIENT CARE PLAN SEEN. PATIENT CARE CONTINUED.
[2023-04-10 08:00] VITALS: BP 108/64
[2023-04-10] MEDS: ASPIRIN 81 MG TAB.CHEW PO SCH (09:53)
[2023-04-10] MEDS: MEMANTINE 10 MG TAB PO SCH (09:53)
[2023-04-10] MEDS ORDERED: CEPH-588 PO ×2 (10:41→10:42)
[2023-04-10] MEDS ORDERED: cephALEXin 500 MG CAP PO SCH (12:00)
--- NOTE | 2023-04-10 12:09 | NUR ---
CALLED TO GIVE REPORT TO HEDY FROM [facility] REGARDING PT'S DISCHARGE AND TRANSPORTATION. PER HEDY, THE TRANSPORTATION SERVICE IS OUT FOR THE DAY, AND WE WILL ARRANGE TRANSPORTATION ON OUR END. NOTIFIED PRIMARY RN JERILYN. Addendum: 04/10/23 at 1241 by Apurva Hedrick RN NOTIFIED DORIS LEAL RISK ADJUSTMENT SPECIALIST KAITLYNN OUT OF OFFICE ON LUNCH CURRENTLY.
--- NOTE | 2023-04-10 13:57 | NUR ---
RECEIVED WORD FOR ARRANGE TRANSPORTATION. RECEIVED TRANSPORTATION AUTH # [id number] FROM HARISH AT [facility]. CALLED TRANSPORT FOR A [id number] SALES PORTER TIME.
[2023-04-10 14:06] VITALS: BP 108/64
== END 2023-04-10 15:10 | DRG 71 ==
LOC: MED 10:40 → MMU 14:03 → MTU 18:00
PROVIDERS: ADMIT General Practice; ATTEND General Practice
DX: G93.41 Metabolic encephalopathy (principal); N39.0 Urinary tract infection, site not specified; G30.9 Alzheimer's disease, unspecified; F02.80 Dementia in other diseases classified elsewhere, unspecified severity, without behavioral disturbance, psychotic disturbance, mood disturbance, and anxiety; I10 Essential (primary) hypertension; Z20.822 Contact with and (suspected) exposure to COVID-19; Z66 Do not resuscitate
CPT/HCPCS: 36415; 70450; 71045; 80048; 80053; 81001; 82140; 82550; 83036; 83735; 84484; 85025; 87040; 87081; 87086; 93005; 96365; 96374; 99291; G0480; G0482; J0696; J1644; J2060; J3490; J7060

== ENCOUNTER 2023-04-19 22:29 | Emergency (ER) | payer OTHER, MEDICAID ==
[~2023-04-19] VITALS: Ht 157.5 cm; Wt 47.6 kg
[~2023-04-19 22:29] MED LIST changes: +CEPH-588 PO
--- NOTE | 2023-04-19 22:30 | NUR ---
LISA FROM [facility] FOLLOWING ALTERCATION WITH ROOMMATE. PT SUSTAINED LACERATION TO BACK OF HEAD AND BUE. PT IS NON COOPERATIVE AND COMBATIVE.
--- NOTE | 2023-04-19 22:31 | NUR ---
PT LISA BLS. TAKEN TO BED 5
--- NOTE | 2023-04-19 22:40 | NUR ---
Dr. Antonio examining patient.
[2023-04-19 22:45] VITALS: BP 124/72
[2023-04-19] MEDS ORDERED: HALOPERIDOL IM 5 MG/ML VIAL IM ONE (22:50)
[2023-04-19] MEDS ORDERED: diphenhydrAMINE 50 MG/ML VIAL IM ONE (22:50)
--- NOTE | 2023-04-19 23:37 | NUR ---
PT TAKEN TO CT
[2023-04-20] MEDS ORDERED: BACTO TP (02:18)
--- NOTE | 2023-04-20 02:44 | NUR ---
resting comfortably with eyes closed. respirations regular and unlabored
--- NOTE | 2023-04-20 04:00 | NUR ---
Patient appears to be resting comfortably in bed. Vital Signs within normal limits. Respirations even and unlabored.
--- NOTE | 2023-04-20 07:17 | NUR ---
Report recieved from FRANKY Bailon for transfer of care.
--- NOTE | 2023-04-20 07:25 | NUR ---
Report given to Tami at [facility]. Patient's warehouse picker is at 8:00AM.
[2023-04-20 07:54] VITALS: BP 123/59
--- NOTE | 2023-04-20 07:54 | NUR ---
Patient discharged with v/s stable. Written and verbal after care instructions given. Patient alert, oriented and verbalized understanding of instructions. Wheel Chair Assisted with to car. All questions addressed prior to discharge. ID band removed. Patient advised to follow up with PMD. Rx of Muirocin given. Opportunity to ask questions provided and answered.
--- NOTE | 2023-04-20 07:55 | NUR ---
The patient's care was reviewed and supervised by Mila Higuera, RN, RN.
== END 2023-04-20 07:54 | disposition home or self-care (01) ==
LOC: MED 22:29
DX: S00.01XA Abrasion of scalp, initial encounter (principal); F03.90 Unspecified dementia, unspecified severity, without behavioral disturbance, psychotic disturbance, mood disturbance, and anxiety; I10 Essential (primary) hypertension; Z79.899 Other long term (current) drug therapy; Y04.8XXA Assault by other bodily force, initial encounter; Y93.89 Activity, other specified; Y92.89 Other specified places as the place of occurrence of the external cause; Y99.8 Other external cause status
CPT/HCPCS: 70450; 90471; 90715; 96372; 99285; J1200; J1630

== ENCOUNTER 2023-06-28 23:10 | Emergency (ER) | payer OTHER, MEDICAID ==
[~2023-06-28] VITALS: Ht 162.6 cm; Wt 55.3 kg
[~2023-06-28 23:10] MED LIST changes: +BACTO TP
[2023-06-28 23:28] VITALS: BP 128/70; PULSE 58; RESP 14; O2SAT 98
--- NOTE | 2023-06-28 23:29 | NUR ---
PT LISA BLS. TAKEN TO BED 5
--- NOTE | 2023-06-28 23:42 | NUR ---
73 YO F LISA FROM [facility]/ STAFF AT [facility] STATE PT WAS FOUND EATING [facility] BLINDS AND THEY REQUESTED AMBULANCE TRANSPORT TO ER FOR EVALUATION. PT HAS NO S/S PAIN OR DISTRESS. PT AXO1 AND ONLY ABLE TO REPEAT HER NAME. PT CONFUSED AND AGGRESSIVE. PT IN VIEW OF NURSES STATION. SAFETY MEASURES IN PLACE. NDKA PMHX: DEMENTIA, HTN
[2023-06-28 23:47] VITALS: BP 147/52; PULSE 54; RESP 18; TEMP 96.5; O2SAT 100
--- NOTE | 2023-06-28 23:56 | NUR ---
Dr. Smith examining patient.
[2023-06-29] MEDS ORDERED: WATER STERILE 10 ML MC ONE (00:01)
[2023-06-29] MEDS: OLANZapine 10 MG VIAL IM ONE (00:20)
--- NOTE | 2023-06-29 00:45 | NUR ---
Patient discharged with v/s stable. Written and verbal after care instructions given and explained. Patient verbalized understanding. Wheel Chair Assisted with to senior care. All questions addressed prior to discharge. Advised to follow up with PMD.
== END 2023-06-29 00:45 | disposition home or self-care (01) ==
LOC: MED 23:10
DX: T18.9XXA Foreign body of alimentary tract, part unspecified, initial encounter (principal); G30.9 Alzheimer's disease, unspecified; F02.80 Dementia in other diseases classified elsewhere, unspecified severity, without behavioral disturbance, psychotic disturbance, mood disturbance, and anxiety; I10 Essential (primary) hypertension; Z79.899 Other long term (current) drug therapy; X58.XXXA Exposure to other specified factors, initial encounter
CPT/HCPCS: 96372; 99283; J3490

== ENCOUNTER 2023-06-30 15:35 | Emergency (ER) | payer OTHER, MEDICAID ==
[~2023-06-30] VITALS: Ht 152.4 cm; Wt 49.9 kg
[2023-06-30] MEDS ORDERED: OLANZapine 10 MG VIAL IM ONE (15:50)
[2023-06-30 16:12] LABS: BASOPHILS # (AUTO) 0.1 K/uL (0.00-0.22); BASOPHILS % (AUTO) 1.1 % (0.0-2.0); EOSINOPHILS # (AUTO) 0.2 K/uL (0-0.4); EOSINOPHILS % (AUTO) 2.4 % (0.0-4.0); HEMATOCRIT 36.6 % (36-48); HEMOGLOBIN 12.2 g/dL (12.0-16.0); LYMPHOCYTES # (AUTO) 1.7 K/uL (2.5-16.5); LYMPHOCYTES % (AUTO) 26.2 % (20.5-51.1); MEAN CORPUSCULAR HEMOGLOBIN 31 pg (27-31); MEAN CORPUSCULAR HGB CONC 33 g/dL (33-37); MEAN CORPUSCULAR VOLUME 92.1 fL (80-94); MONOCYTES # (AUTO) 0.4 K/uL (0.8-1.0); MONOCYTES % (AUTO) 6.8 % (1.7-9.3); NEUTROPHILS % (AUTO) 63.5 % (42.2-75.2); PLATELET COUNT (AUTO) 164 K/uL (140-450); RED BLOOD CELL COUNT(AUTO) 3.98 MIL/uL (4.20-5.40); RED CELL DISTRIBUTION WIDTH 13.6 % (11.6-13.7); WHITE BLOOD COUNT (AUTO) 6.4 K/uL (4.8-10.8)
[2023-06-30 16:32] VITALS: BP 114/66; PULSE 55; RESP 18; TEMP 97.9; O2SAT 99
[2023-06-30 16:38] LABS: ALANINE AMINOTRANSFERASE 20 U/L (12-78); ALBUMIN 3.5 g/dL (3.4-5.0); ALKALINE PHOSPHATASE 182 U/L (50-136); ANION GAP 10.9 (8-16); ASPARTATE AMINOTRANSFERASE 31 U/L (15-37); CALCIUM 8.7 mg/dL (8.5-10.1); CARBON DIOXIDE 28.8 mmol/L (21-32); CHLORIDE 107 mmol/L (98-107); CREATININE 0.9 mg/dL (0.6-1.3); GLUCOSE 91 mg/dL (74-106); POTASSIUM 3.7 mmol/L (3.5-5.1); SODIUM SERUM 143 mmol/L (136-145); TOTAL BILIRUBIN 0.3 mg/dL (0.0-1.0); TOTAL PROTEIN, SERUM 6.6 g/dL (6.4-8.2); UREA NITROGEN, BLOOD 20 mg/dL (7-18)
[2023-06-30] MEDS ORDERED: WATER STERILE 10 ML MC ONE (16:42)
[2023-06-30 17:20] VITALS: O2SAT 99
== END 2023-06-30 20:23 | disposition home or self-care (01) ==
LOC: MED 15:35
DX: T65.891A Toxic effect of other specified substances, accidental (unintentional), initial encounter (principal); F03.90 Unspecified dementia, unspecified severity, without behavioral disturbance, psychotic disturbance, mood disturbance, and anxiety; I10 Essential (primary) hypertension; Z79.899 Other long term (current) drug therapy; Y92.89 Other specified places as the place of occurrence of the external cause
CPT/HCPCS: 36415; 70360; 71045; 74018; 80053; 85025; 96372; 99284; G0482; J3490

== ENCOUNTER 2023-07-05 17:19 | Inpatient (IN) | payer OTHER, MEDICAID ==
[~2023-07-05] VITALS: Ht 147.3 cm; Wt 43.1 kg
[2023-07-05 17:40] VITALS: BP 114/60; PULSE 60; RESP 14; O2SAT 97
[2023-07-05] MEDS ORDERED: LORazepam 0.5 MG TAB PO ONE (17:55)
[2023-07-05] MEDS ORDERED: OLANZapine 10 MG VIAL IM ONE (18:20)
[2023-07-05] MEDS ORDERED: WATER STERILE 10 ML MC ONE (18:25)
[2023-07-05 18:32] VITALS: O2SAT 98
[2023-07-05] MEDS ORDERED: LORazepam 2 MG/ML VIAL IM ONE (19:25)
[2023-07-05] MEDS ORDERED: LORazepam 2 MG/ML VIAL IVP ONE (19:35)
[2023-07-05 19:40] LABS: BASOPHILS # (AUTO) 0.1 K/uL (0.00-0.22); BASOPHILS % (AUTO) 0.7 % (0.0-2.0); EOSINOPHILS # (AUTO) 0.1 K/uL (0-0.4); EOSINOPHILS % (AUTO) 0.9 % (0.0-4.0); HEMATOCRIT 34.4 % (36-48); HEMOGLOBIN 11.5 g/dL (12.0-16.0); LYMPHOCYTES # (AUTO) 1.4 K/uL (2.5-16.5); LYMPHOCYTES % (AUTO) 19.1 % (20.5-51.1); MEAN CORPUSCULAR HEMOGLOBIN 31 pg (27-31); MEAN CORPUSCULAR HGB CONC 33 g/dL (33-37); MONOCYTES # (AUTO) 0.6 K/uL (0.8-1.0); MONOCYTES % (AUTO) 8.1 % (1.7-9.3); NEUTROPHILS # (AUTO) 5.3 K/uL (1.8-7.7); NEUTROPHILS % (AUTO) 71.2 % (42.2-75.2); PLATELET COUNT (AUTO) 139 K/uL (140-450); RED BLOOD CELL COUNT(AUTO) 3.74 MIL/uL (4.20-5.40); RED CELL DISTRIBUTION WIDTH 13.5 % (11.6-13.7); WHITE BLOOD COUNT (AUTO) 7.4 K/uL (4.8-10.8)
[2023-07-05 20:04] LABS: ANION GAP 13.4 (8-16); CALCIUM 8.8 mg/dL (8.5-10.1); CARBON DIOXIDE 26.6 mmol/L (21-32); CHLORIDE 108 mmol/L (98-107); CREATININE 0.8 mg/dL (0.6-1.3); GLUCOSE 112 mg/dL (74-106); SODIUM SERUM 144 mmol/L (136-145); UREA NITROGEN, BLOOD 22 mg/dL (7-18)
[2023-07-05 20:14] LABS: ALANINE AMINOTRANSFERASE 26 U/L (12-78); ALBUMIN 3.7 g/dL (3.4-5.0); ALKALINE PHOSPHATASE 184 U/L (50-136); ASPARTATE AMINOTRANSFERASE 45 U/L (15-37); TOTAL BILIRUBIN 0.3 mg/dL (0.0-1.0); TOTAL PROTEIN, SERUM 6.9 g/dL (6.4-8.2)
[2023-07-05] MEDS ORDERED: LORazepam 2 MG/ML VIAL ONE (20:58)
[2023-07-05 21:19] LABS: BILIRUBIN,URINE NEGATIVE (NEGATIVE); BLOOD, URINE 3+ (NEGATIVE); COLOR,URINE YELLOW (YELLOW); LEUKOCYTE ESTERASE ,URINE TRACE (NEGATIVE); NITRITE, URINE NEGATIVE (NEGATIVE); PROTEIN,URINE NEGATIVE (NEGATIVE); UGLUCOSE NEGATIVE (NEGATIVE)
[2023-07-05 22:01] LABS: APPEARANCE,URINE HAZY (CLEAR)
[2023-07-05 22:04] LABS: BACTERIA,URINE FEW /HPF (None Seen); RBC,URINE 20-50 /HPF (0-5); SQUAMOUS EPITHELIAL CELL,UR None Seen /LPF (0-3 (FEW)); WBC,URINE 0-5 /HPF (0-5)
[2023-07-05] MEDS ORDERED: SERT25TA PO (22:17)
[2023-07-05] MEDS ORDERED: ACET-2619 PO (22:17)
[2023-07-05] MEDS ORDERED: LORazepam 2 MG/ML VIAL IVP PRN (22:30)
[2023-07-05] MEDS ORDERED: ACETAMINOPHEN 325 MG TAB PO PRN (22:30)
[2023-07-05] MEDS ORDERED: ONDANSETRON 4 MG/2 ML VIAL IVP PRN (22:30)
[2023-07-05] MEDS ORDERED: ALBUTEROL 0.083% 2.5 MG/3 ML NEBU INH PRN (22:30)
[2023-07-05] MEDS ORDERED: MORPHINE SULFATE 2 MG/ML SYR IVP PRN (22:30)
[2023-07-05 23:25] VITALS: PULSE 50; RESP 17; O2SAT 100
[2023-07-05] MEDS ORDERED: cefTRIAXone 1,000 MG VIAL ONE (23:30)
[2023-07-06] VITALS (7 sets, daily range): BP systolic 110–153; BP diastolic 72–81; PULSE 52–86; RESP 16–18; TEMP 96.7–97.8; O2SAT 94–100
[2023-07-06] MEDS: NACL 0.9% 1,000 ML IV SCH ×3 (00:24→18:38)
[2023-07-06 05:10] LABS: BASOPHILS % (AUTO) 0.9 % (0.0-2.0); EOSINOPHILS # (AUTO) 0.2 K/uL (0-0.4); EOSINOPHILS % (AUTO) 2.8 % (0.0-4.0); HEMATOCRIT 33.2 % (36-48); HEMOGLOBIN 11.2 g/dL (12.0-16.0); LYMPHOCYTES # (AUTO) 1.9 K/uL (2.5-16.5); LYMPHOCYTES % (AUTO) 34.3 % (20.5-51.1); MEAN CORPUSCULAR HEMOGLOBIN 31 pg (27-31); MEAN CORPUSCULAR HGB CONC 34 g/dL (33-37); MONOCYTES # (AUTO) 0.5 K/uL (0.8-1.0); MONOCYTES % (AUTO) 9.7 % (1.7-9.3); NEUTROPHILS # (AUTO) 2.9 K/uL (1.8-7.7); NEUTROPHILS % (AUTO) 52.3 % (42.2-75.2); PLATELET COUNT (AUTO) 121 K/uL (140-450); RED BLOOD CELL COUNT(AUTO) 3.61 MIL/uL (4.20-5.40); RED CELL DISTRIBUTION WIDTH 13.6 % (11.6-13.7); WHITE BLOOD COUNT (AUTO) 5.5 K/uL (4.8-10.8)
[2023-07-06 05:14] LABS: ALANINE AMINOTRANSFERASE 23 U/L (12-78); ALBUMIN 3.2 g/dL (3.4-5.0); ALKALINE PHOSPHATASE 154 U/L (50-136); ANION GAP 8.8 (8-16); ASPARTATE AMINOTRANSFERASE 40 U/L (15-37); CALCIUM 8.3 mg/dL (8.5-10.1); CARBON DIOXIDE 28.6 mmol/L (21-32); CHLORIDE 110 mmol/L (98-107); CREATININE 0.8 mg/dL (0.6-1.3); GLUCOSE 77 mg/dL (74-106); MAGNESIUM 2.2 mg/dL (1.8-2.4); PHOSPHORUS 3.2 mg/dL (2.5-4.9); POTASSIUM 3.4 mmol/L (3.5-5.1); SODIUM SERUM 144 mmol/L (136-145); TOTAL BILIRUBIN 0.3 mg/dL (0.0-1.0); TOTAL PROTEIN, SERUM 6.2 g/dL (6.4-8.2); UREA NITROGEN, BLOOD 17 mg/dL (7-18)
[2023-07-06 10:44] LABS: FREE T4 (FREE THYROXINE) 0.73 ng/dL (0.76-1.46); THYROID STIMULATING HORMONE 3.21 uIU/mL (0.34-3.74)
[2023-07-06] MEDS ORDERED: DOCUSATE SODIUM 100 MG GELCAP PO PRN (11:20)
[2023-07-06] MEDS ORDERED: ACETAMINOPHEN 325 MG TAB PO SCH (11:20)
[2023-07-06] MEDS ORDERED: QUEtiapine FUMARATE 25 MG TAB PO SCH (12:00)
[2023-07-06] MEDS ORDERED: HALOPERIDOL IM 5 MG/ML VIAL IM SCH (12:17)
[2023-07-06] MEDS ORDERED: POTASSIUM CHLORIDE 10 MEQ TABER PO SCH (18:00)
[2023-07-07] MEDS: NACL 0.9% 1,000 ML IV SCH ×2 (04:30→10:55)
[2023-07-07 07:06] VITALS: O2SAT 100
[2023-07-07 08:00] VITALS: BP 119/56; PULSE 85; RESP 16; RESP 18; TEMP 97.6; O2SAT 100
[2023-07-07] MEDS: SERTRALINE 50 MG TAB PO SCH (09:22)
[2023-07-07] MEDS: QUEtiapine FUMARATE 25 MG TAB PO SCH (09:22)
[2023-07-07 16:00] VITALS: BP 129/81; PULSE 60; RESP 20; TEMP 98; O2SAT 100
[2023-07-07 19:34] VITALS: O2SAT 100
[2023-07-07 20:00] VITALS: BP 112/63; PULSE 65; RESP 16; TEMP 97.2; O2SAT 96
[2023-07-07] MEDS ORDERED: ZOLPIDEM 5 MG TAB PO PRN (20:15)
[2023-07-07] MEDS ORDERED: cefTRIAXone 1,000 MG in LIDOCAINE MPF 1% 2.1 ML IM ONE (23:05)
[2023-07-07] MEDS ORDERED: LIDOCAINE MPF 1% 5 ML ONE (23:42)
[2023-07-07] MEDS ORDERED: cefTRIAXone 1,000 MG VIAL ONE (23:43)
[2023-07-07] MEDS: HYDROcodone/APAP 5/325 MG 1 TAB TAB PO PRN (23:46)
[2023-07-08] MEDS: NACL 0.9% 1,000 ML IV SCH ×3 (00:30→20:30)
[2023-07-08 06:47] VITALS: O2SAT 96
[2023-07-08 08:00] VITALS: BP 120/60; PULSE 56; RESP 18; RESP 20; TEMP 98; O2SAT 100
[2023-07-08] MEDS: QUEtiapine FUMARATE 25 MG TAB PO SCH ×2 (08:54→22:03)
[2023-07-08] MEDS: SERTRALINE 50 MG TAB PO SCH (08:54)
[2023-07-08] MEDS: HYDROcodone/APAP 5/325 MG 1 TAB TAB PO PRN (08:55)
[2023-07-08 11:11] LABS: BASOPHILS # (AUTO) 0.1 K/uL (0.00-0.22); BASOPHILS % (AUTO) 0.8 % (0.0-2.0); EOSINOPHILS # (AUTO) 0.1 K/uL (0-0.4); EOSINOPHILS % (AUTO) 1.8 % (0.0-4.0); HEMATOCRIT 39.1 % (36-48); LYMPHOCYTES # (AUTO) 1.3 K/uL (2.5-16.5); LYMPHOCYTES % (AUTO) 20.3 % (20.5-51.1); MEAN CORPUSCULAR HEMOGLOBIN 31 pg (27-31); MEAN CORPUSCULAR HGB CONC 33 g/dL (33-37); MEAN CORPUSCULAR VOLUME 91.2 fL (80-94); MONOCYTES # (AUTO) 0.5 K/uL (0.8-1.0); MONOCYTES % (AUTO) 8.1 % (1.7-9.3); NEUTROPHILS # (AUTO) 4.4 K/uL (1.8-7.7); PLATELET COUNT (AUTO) 148 K/uL (140-450); RED BLOOD CELL COUNT(AUTO) 4.28 MIL/uL (4.20-5.40); RED CELL DISTRIBUTION WIDTH 13.2 % (11.6-13.7); WHITE BLOOD COUNT (AUTO) 6.3 K/uL (4.8-10.8)
[2023-07-08 11:28] LABS: ANION GAP 9.3 (8-16); CARBON DIOXIDE 28.3 mmol/L (21-32); CHLORIDE 108 mmol/L (98-107); CREATININE 0.8 mg/dL (0.6-1.3); GLUCOSE 81 mg/dL (74-106); POTASSIUM 3.6 mmol/L (3.5-5.1); SODIUM SERUM 142 mmol/L (136-145); UREA NITROGEN, BLOOD 14 mg/dL (7-18)
[2023-07-08 11:35] LABS: MAGNESIUM 2.1 mg/dL (1.8-2.4); PHOSPHORUS 3.9 mg/dL (2.5-4.9)
[2023-07-08] MEDS ORDERED: QUEtiapine FUMARATE 25 MG TAB PO SCH (12:30)
[2023-07-08 16:00] VITALS: BP 115/65; PULSE 62; RESP 20; TEMP 97.1; O2SAT 100
[2023-07-08 20:00] VITALS: BP 108/58; PULSE 85; RESP 18; TEMP 97.1; O2SAT 90
[2023-07-09 04:00] VITALS: BP 110/73; PULSE 63; RESP 18; TEMP 96.7; O2SAT 100
[2023-07-09 05:55] LABS: BASOPHILS # (AUTO) 0.1 K/uL (0.00-0.22); BASOPHILS % (AUTO) 0.9 % (0.0-2.0); EOSINOPHILS # (AUTO) 0.2 K/uL (0-0.4); EOSINOPHILS % (AUTO) 2.7 % (0.0-4.0); HEMATOCRIT 39.9 % (36-48); HEMOGLOBIN 13.3 g/dL (12.0-16.0); LYMPHOCYTES # (AUTO) 2.4 K/uL (2.5-16.5); LYMPHOCYTES % (AUTO) 30.3 % (20.5-51.1); MEAN CORPUSCULAR HEMOGLOBIN 31 pg (27-31); MEAN CORPUSCULAR HGB CONC 33 g/dL (33-37); MEAN CORPUSCULAR VOLUME 92.4 fL (80-94); MONOCYTES # (AUTO) 0.8 K/uL (0.8-1.0); MONOCYTES % (AUTO) 9.5 % (1.7-9.3); NEUTROPHILS # (AUTO) 4.5 K/uL (1.8-7.7); NEUTROPHILS % (AUTO) 56.6 % (42.2-75.2); PLATELET COUNT (AUTO) 172 K/uL (140-450); RED BLOOD CELL COUNT(AUTO) 4.32 MIL/uL (4.20-5.40); RED CELL DISTRIBUTION WIDTH 13.8 % (11.6-13.7)
[2023-07-09 06:15] LABS: ANION GAP 16.8 (8-16); CALCIUM 9.3 mg/dL (8.5-10.1); CARBON DIOXIDE 24.2 mmol/L (21-32); CHLORIDE 105 mmol/L (98-107); CREATININE 0.8 mg/dL (0.6-1.3); GLUCOSE 66 mg/dL (74-106); SODIUM SERUM 142 mmol/L (136-145); UREA NITROGEN, BLOOD 17 mg/dL (7-18)
[2023-07-09] MEDS: NACL 0.9% 1,000 ML IV SCH ×3 (06:30→22:17)
[2023-07-09 08:00] VITALS: PULSE 55; RESP 19; O2SAT 100
[2023-07-09 08:26] VITALS: PULSE 59; RESP 20; O2SAT 98
[2023-07-09] MEDS: SERTRALINE 50 MG TAB PO SCH (10:17)
[2023-07-09] MEDS: QUEtiapine FUMARATE 25 MG TAB PO SCH ×2 (10:17→21:33)
[2023-07-09 16:00] VITALS: BP 135/66; PULSE 57; RESP 18; TEMP 97; O2SAT 98
[2023-07-09 20:00] VITALS: BP 130/73; PULSE 97; RESP 18; TEMP 98.9; O2SAT 96
[2023-07-09 20:05] VITALS: O2SAT 99
[2023-07-10 05:37] LABS: ANION GAP 9.6 (8-16); CALCIUM 8.8 mg/dL (8.5-10.1); CARBON DIOXIDE 31.4 mmol/L (21-32); CHLORIDE 108 mmol/L (98-107); CREATININE 0.7 mg/dL (0.6-1.3); GLUCOSE 89 mg/dL (74-106); SODIUM SERUM 145 mmol/L (136-145); UREA NITROGEN, BLOOD 16 mg/dL (7-18)
[2023-07-10 05:47] LABS: BASOPHILS # (AUTO) 0.1 K/uL (0.00-0.22); BASOPHILS % (AUTO) 0.8 % (0.0-2.0); EOSINOPHILS # (AUTO) 0.2 K/uL (0-0.4); EOSINOPHILS % (AUTO) 2.6 % (0.0-4.0); HEMATOCRIT 38.3 % (36-48); LYMPHOCYTES # (AUTO) 1.8 K/uL (2.5-16.5); LYMPHOCYTES % (AUTO) 22.7 % (20.5-51.1); MEAN CORPUSCULAR HEMOGLOBIN 31 pg (27-31); MEAN CORPUSCULAR HGB CONC 34 g/dL (33-37); MEAN CORPUSCULAR VOLUME 91.3 fL (80-94); MONOCYTES # (AUTO) 0.7 K/uL (0.8-1.0); MONOCYTES % (AUTO) 9.3 % (1.7-9.3); NEUTROPHILS # (AUTO) 5.1 K/uL (1.8-7.7); NEUTROPHILS % (AUTO) 64.6 % (42.2-75.2); PLATELET COUNT (AUTO) 153 K/uL (140-450); RED CELL DISTRIBUTION WIDTH 13.2 % (11.6-13.7); WHITE BLOOD COUNT (AUTO) 7.9 K/uL (4.8-10.8)
[2023-07-10 07:49] VITALS: O2SAT 95
[2023-07-10 08:00] VITALS: BP 113/62; PULSE 53; RESP 17; TEMP 97.3; O2SAT 97
[2023-07-10] MEDS ORDERED: QUET50TA PO (08:49)
[2023-07-10] MEDS: QUEtiapine FUMARATE 25 MG TAB PO SCH (08:50)
[2023-07-10] MEDS: SERTRALINE 50 MG TAB PO SCH (08:50)
[2023-07-10 10:23] VITALS: BP 115/62; PULSE 53; RESP 17; TEMP 97.3
[2023-07-10] MEDS: NACL 0.9% 1,000 ML IV SCH ×2 (12:30→12:34)
== END 2023-07-10 15:55 | DRG 71 ==
LOC: MED 17:19 → MTU 22:36
PROVIDERS: ADMIT Student in an Organized Health Care Education/Training Program; ATTEND Student in an Organized Health Care Education/Training Program
DX: G93.41 Metabolic encephalopathy (principal); E44.1 Mild protein-calorie malnutrition; N39.0 Urinary tract infection, site not specified; Z68.1 Body mass index [BMI] 19.9 or less, adult; I10 Essential (primary) hypertension; F01.50 Vascular dementia, unspecified severity, without behavioral disturbance, psychotic disturbance, mood disturbance, and anxiety; E03.8 Other specified hypothyroidism; R74.01 Elevation of levels of liver transaminase levels; Z79.82 Long term (current) use of aspirin; Z79.899 Other long term (current) drug therapy; Z88.2 Allergy status to sulfonamides; Z78.1 Physical restraint status
CPT/HCPCS: 36415; 70450; 71045; 80048; 80053; 81001; 82140; 83735; 84100; 84439; 84443; 84484; 85025; 87081; 93005; 96372; 96374; 97116; 97163-GP; 99285; J0696; J1630; J2001; J2060; J3490; J7060

== ENCOUNTER 2023-07-11 19:09 | Emergency (ER) | payer OTHER, MEDICAID ==
[~2023-07-11] VITALS: Ht 162.6 cm; Wt 63.5 kg
[~2023-07-11 19:09] MED LIST changes: +ACET-2619 PO; -CEPH-588 PO; -MEMA5TAB PO; -QUET25TA PO; +QUET50TA PO; +SERT25TA PO
[2023-07-11 19:33] VITALS: BP 119/80; PULSE 64; RESP 18; TEMP 98.2; O2SAT 99
== END 2023-07-11 20:47 ==
LOC: MED 19:09 → MERGE 19:09 → MED 20:47
DX: T18.2XXA Foreign body in stomach, initial encounter (principal); Z79.899 Other long term (current) drug therapy
CPT/HCPCS: 76010; 99283

== ENCOUNTER 2023-07-14 18:08 | Emergency (ER) | payer OTHER, MEDICAID ==
[~2023-07-14] VITALS: Ht 144.8 cm; Wt 47.6 kg
[2023-07-14 18:26] VITALS: BP 112/83; PULSE 63; RESP 63; TEMP 97.6; O2SAT 100
[2023-07-14 18:37] VITALS: O2SAT 100
== END 2023-07-14 19:47 | disposition home or self-care (01) ==
LOC: MED 18:08
DX: T18.8XXA Foreign body in other parts of alimentary tract, initial encounter (principal); I10 Essential (primary) hypertension; F03.90 Unspecified dementia, unspecified severity, without behavioral disturbance, psychotic disturbance, mood disturbance, and anxiety; Z88.2 Allergy status to sulfonamides; Z79.899 Other long term (current) drug therapy; Y92.89 Other specified places as the place of occurrence of the external cause
CPT/HCPCS: 99283

== ENCOUNTER 2023-07-22 20:10 | Emergency (ER) | payer OTHER, MEDICAID ==
[~2023-07-22] VITALS: Ht 165.1 cm; Wt 61.2 kg
[2023-07-22] MEDS ORDERED: LORazepam 0.5 MG TAB PO ONE (20:20)
[2023-07-22] MEDS ORDERED: QUEtiapine FUMARATE 25 MG TAB PO STA (20:20)
[2023-07-22 20:21] VITALS: BP 119/58; PULSE 64; RESP 22; TEMP 98.2; O2SAT 99
[2023-07-22 20:43] VITALS: BP 119/58; PULSE 64; RESP 22; TEMP 98.2
[2023-07-22 20:46] VITALS: O2SAT 99
== END 2023-07-22 20:43 | disposition home or self-care (01) ==
LOC: MED 20:10
DX: T18.8XXA Foreign body in other parts of alimentary tract, initial encounter (principal); F03.90 Unspecified dementia, unspecified severity, without behavioral disturbance, psychotic disturbance, mood disturbance, and anxiety; I10 Essential (primary) hypertension; Z88.2 Allergy status to sulfonamides; Z79.899 Other long term (current) drug therapy; X58.XXXA Exposure to other specified factors, initial encounter; Y93.89 Activity, other specified; Y92.89 Other specified places as the place of occurrence of the external cause; Y99.8 Other external cause status
CPT/HCPCS: 99284

== ENCOUNTER 2023-07-29 19:08 | Emergency (ER) | payer OTHER, MEDICAID ==
[~2023-07-29] VITALS: Ht 149.9 cm; Wt 43.1 kg
[2023-07-29 19:08] VITALS: BP 122/69; PULSE 68; RESP 16; TEMP 97.9; O2SAT 98
[2023-07-29] MEDS ORDERED: LORazepam 2 MG/ML VIAL IM ONE (19:45)
[2023-07-29 19:53] LABS: BASOPHILS # (AUTO) 0.1 K/uL (0.00-0.22); BASOPHILS % (AUTO) 1.3 % (0.0-2.0); EOSINOPHILS # (AUTO) 0.1 K/uL (0-0.4); EOSINOPHILS % (AUTO) 1.1 % (0.0-4.0); HEMATOCRIT 34.1 % (36-48); HEMOGLOBIN 11.4 g/dL (12.0-16.0); LYMPHOCYTES # (AUTO) 2.2 K/uL (2.5-16.5); LYMPHOCYTES % (AUTO) 38.8 % (20.5-51.1); MEAN CORPUSCULAR HEMOGLOBIN 31 pg (27-31); MEAN CORPUSCULAR HGB CONC 33 g/dL (33-37); MEAN CORPUSCULAR VOLUME 91.2 fL (80-94); MONOCYTES # (AUTO) 0.4 K/uL (0.8-1.0); MONOCYTES % (AUTO) 7.8 % (1.7-9.3); NEUTROPHILS # (AUTO) 2.9 K/uL (1.8-7.7); PLATELET COUNT (AUTO) 231 K/uL (140-450); RED BLOOD CELL COUNT(AUTO) 3.74 MIL/uL (4.20-5.40); RED CELL DISTRIBUTION WIDTH 13.4 % (11.6-13.7); WHITE BLOOD COUNT (AUTO) 5.6 K/uL (4.8-10.8)
[2023-07-29 20:18] LABS: ANION GAP 15.4 (8-16); CARBON DIOXIDE 24.8 mmol/L (21-32); CHLORIDE 110 mmol/L (98-107); CREATININE 0.9 mg/dL (0.6-1.3); GLUCOSE 93 mg/dL (74-106); POTASSIUM 4.2 mmol/L (3.5-5.1); SODIUM SERUM 146 mmol/L (136-145); UREA NITROGEN, BLOOD 23 mg/dL (7-18)
[2023-07-29] MEDS ORDERED: HALOPERIDOL IM 5 MG/ML VIAL IM ONE (20:25)
[2023-07-29 21:21] LABS: APPEARANCE,URINE CLEAR (CLEAR); BILIRUBIN,URINE NEGATIVE (NEGATIVE); BLOOD, URINE NEGATIVE (NEGATIVE); COLOR,URINE YELLOW (YELLOW); LEUKOCYTE ESTERASE ,URINE NEGATIVE (NEGATIVE); NITRITE, URINE NEGATIVE (NEGATIVE); PROTEIN,URINE NEGATIVE (NEGATIVE); UGLUCOSE NEGATIVE (NEGATIVE); UROBILINOGEN,URINE 0.2 EU/dL (0.2 - 1)
[2023-07-30 06:50] VITALS: BP 102/61; PULSE 59; RESP 16; TEMP 97.9; O2SAT 100
== END 2023-07-30 06:50 ==
LOC: MED 19:08
DX: R41.82 Altered mental status, unspecified (principal); I10 Essential (primary) hypertension; F03.90 Unspecified dementia, unspecified severity, without behavioral disturbance, psychotic disturbance, mood disturbance, and anxiety; Z79.899 Other long term (current) drug therapy; Z79.82 Long term (current) use of aspirin; Z88.2 Allergy status to sulfonamides
CPT/HCPCS: 36415; 70450; 71045; 80048; 81003; 85025; 96372; 96374; 99285; J1630; J2060; Q0092